=== PATIENT | female | born 1950 | race Caucasian/White ===

== ENCOUNTER → 2025-05-27 08:56 | Outpatient (REF) | payer MEDICARE, OTHER, SELFPAY ==
[2025-05-27 09:44] LABS: Hematocrit 40.7 % (37.0-47.0); Hemoglobin 14.0 g/dL (12.0-16.0); Mean Corp Hgb Conc. 34.4 g/dL (33.0-37.0); Mean Corpuscular Volume 86.2 fL (81.0-99.0); Nucleated Red Blood Cells % 0 %; Platelet Count 310 10^3/uL (130-400); Red Cell Dist. Width 13.0 % (11.5-14.5)
[2025-05-27 10:03] LABS: INR 1.27; PT 16.2 Sec (11.4-14.6)
[2025-05-27 10:26] LABS: ALT (SGPT) 19 U/L (0-35); AST (SGOT) 22 U/L (14-36); Albumin 4.1 g/dl (3.5-5.0); Alkaline Phosphatase 127 U/L (38-126); Blood Urea Nitrogen 19 mg/dl (7-17); Calcium 9.4 mg/dl (8.4-10.2); Carbon Dioxide 28 mmol/L (22-30); Chloride 104 mmol/L (98-107); Glucose 129 mg/dl (70-99); Magnesium 2.2 mg/dl (1.6-2.3); Potassium 4.0 mmol/L (3.5-5.1); Sodium 139 mmol/L (135-145); Total Protein 6.7 g/dl (6.3-8.2); eGFR > 60.00
== END ==
LOC: SDSPAT 08:56
PROVIDERS: ATTENDING PHYSICIAN Internal Medicine Cardiovascular Disease; FAMILY PHYSICIAN Family Medicine; OTHER PHYSICIAN Internal Medicine Interventional Cardiology
DX: I48.19 Other persistent atrial fibrillation (principal)
CPT/HCPCS: 36415; 75572; 80053; 83735; 85025; 85610; 86850; 86900; 86901; 93005; Q9967

== ENCOUNTER 2025-06-05 06:04 | Day surgery (SDC) | payer MEDICARE, OTHER, SELFPAY ==
[2025-05-27 09:23] VITALS: BMI 22.4
--- NOTE | 2025-05-28 11:44 | W.PN.UPDATE ---
Update Note
Progress Note Update
Chest CT 05/27/2025:
No left atrial appendage filling defect.
Incidental 9 mm low-attenuation thyroid nodule in the right lobe. --PCP and patient made aware
[2025-06-05] VITALS (12 sets, daily range): BP systolic 105–136; BP diastolic 57–76
--- NOTE | 2025-06-05 07:53 | ITS.CL.ABL ---
Supervisor Taping - Ablation
Ablation
Procedure Report:
ELECTROPHYSIOLOGIC STUDY AND POSSIBLE ABLATION
DATE: June 05, 2025
Primary Care Provider: Dr Mara Darling
Primary Managing Attorney: Dr Ignacio Segura
INDICATION:
Symptomatic Atrial Fibrillation.
Persistent
HISTORY: See H and P.
Symptomatic AF, poorly controlled with attempted medical therapy.
Symptomatic persistent atrial fibrillation with duration less than 1 year.
HAS-BLED: 2
Age
Abnormal Liver Function
CHADSVASc: 4
HTN
Age
F Gender
PRESENTING RHYTHM: AF
HISTORY: See H and P.
Symptomatic AF, poorly controlled with attempted medical therapy.
ANTICOAGULATION: Eliquis 5 mg twice daily
'TIME-OUT': called and confirmed.
SEDATION/ANESTHESIA: provided via the anesthesia department using general anesthesia.
PROCEDURE:
Ultrasound Guidance with real-time visualization of needle insertion and vessel patency performed by ca for femoral venous Vascular Access.
Under real-time US guidance, the needle was advanced with negative pressure into the vein. The needle was seen entering the vessel lumen with a good return of dark red flow, the syringe was removed, non-pulsatile, dark red blood low was noted and
the wire was passed without difficulty, then the needle was removed. US confirmed the wire was in the vein, not going into an artery,
Images were taken and saved for the patient's permanent record. Imaging findings typical femoral venous anatomy. Direct visualization of needle puncture into the femoral vein was observed and recorded.
A decapolar CS catheter was placed within the CS for mapping and pacing.
The intracardiac ultrasound catheter was positioned in the RA for continuous intracardiac ultrasound imaging.
Heparin bolus and infusion to target ACT at 300 -350 seconds was administered. Transseptal puncture was performed. This entailed advancing a sheath with dilator into the superior vena cava and withdrawing both (monitoring intracardiac ultrasound,
fluoroscopy and tip pressure) with the tip oriented toward the atrial septum. The fossa ovalis was engaged (indicated by sudden displacement of the sheath tip as well as tenting of the fossa seen on intracardiac ultrasound).
Transseptal puncture was performed. Left atrial catheter position was confirmed by echocardiographic imaging, pressure monitoring (LA mean pressure 18 mm Hg) and fluoroscopy. The sheath was advanced over the dilator and positioned in the left
atrium.
The [employer] multipolar mapping/ablation Sphere-9 catheter was positioned through the transseptal sheath for high density mapping.
Geometry and voltage mapping was performed using the kajeet mapping system for three-dimensional electroanatomical mapping.
Catheter positioning was guided and confirmed using both I.C.E. and fluoroscopy.
Cardioversion resulted in sinus rhythm.
Ablation strategy included PVI as well as mapping for extra PV contributors to atrial fibrillation which would also be targeted if present.
High density electroanatomical three-dimensional mapping demonstrated LSPV, LIPV, RSPV, RIPV.
After accomplishing pulmonary venous isolation, mapping identified additional areas likely to be extra PV contributors to atrial fibrillation. These areas demonstrated patchy low voltage as well as complex fractionated electrograms. These areas can
be sites for the formation of rotors which can drive and maintain atrial fibrillation. These areas are known to be significant contributors to initiation and perpetuation of atrial fibrillation.
Additional energy applications/additional ablation sets targeted extra PV contributors to atrial fibrillation.
Targets for additional PFA ablation included:
LA posterior wall targeted with pulsed electric field energy isolating the posterior wall of the left atrium
After ablation of the posterior wall, additional targets remained:
Anterior LA roof line
The ridge of tissue between the left atrial appendage and the left sided pulmonary veins (Ligament of Lucius )
These areas were ablated using pulsed electric field energy eliminating the extra PV contributors to atrial fibrillation.
Post ablation mapping finds entrance and exit block at each of the pulmonary veins, the LA posterior wall and at the additional lines at the anterior roof of the LA and the Ligament of Marshal rendering the sites no longer able to contribute to
atrial fibrillation.
I.C.E. :
Pre-Ablation Post-Ablation
LVEF: 55 % 55 %
WMA: none none
Pericardial effusion: none none
COMPLICATIONS:
None
SUMMARY:
- Mapping and ablation to isolate the PVs resulting in electrical isolation of the pulmonary veins
- Additional AF ablation sets X 3 after PVI (LA posterior wall, anterior roof line, ligament of Lucius) resulting in elimination of the targeted extra PV contributors to atrial fibrillation
- 3-D Electroanatomical Mapping
- Intracardiac Ultrasound
- Ultrasound guidance for vascular access
Post ablation, I discussed today's findings and results with the patient's daugther.
RECOMMENDATIONS:
- Observe in monitored bed.
- Maintain oral anticoagulation.
- Continue Eliquis 5 mg twice daily
- Continue cardiovascular care with Dr. Ignacio Segura
Copy to:
Dr Mara Darling
Dr Ignacio Segura
[2025-06-05 08:31] LABS: ACT-LR - POC 363 Seconds (116-155)
[2025-06-05 09:05] LABS: ACT-LR - POC 351 Seconds (116-155)
[2025-06-05 09:24] LABS: ACT-LR - POC 355 Seconds (116-155)
[2025-06-05 10:07] LABS: ACT-LR - POC > 397 Seconds (116-155)
--- NOTE | 2025-06-05 14:07 | W.PN.UPDATE ---
Update Note
Progress Note Update
74 yo WF s/p PVI (same day). She denies cp, sob, rosi diet, voiding, EKG SR 1 deg AVB, R fem site c/d/i, soft, no HT, mildly tender to palpation. She will resume Eliquis tonight. Activity restrictions reviewed. She will f/u Dr. Segura in 2 mo. She is
for d/c home after 230p if groin stable.
== END 2025-06-05 14:42 | disposition home or self-care (01) ==
LOC: CATH 06:04
PROVIDERS: ATTENDING PHYSICIAN Internal Medicine Cardiovascular Disease; FAMILY PHYSICIAN Family Medicine; REFERRING PHYSICIAN Internal Medicine Interventional Cardiology
DX: I48.19 Other persistent atrial fibrillation (principal); I10 Essential (primary) hypertension; E78.5 Hyperlipidemia, unspecified; I34.0 Nonrheumatic mitral (valve) insufficiency; I49.8 Other specified cardiac arrhythmias; Z79.01 Long term (current) use of anticoagulants; Z79.899 Other long term (current) drug therapy; Z90.3 Acquired absence of stomach [part of]; D50.9 Iron deficiency anemia, unspecified; K21.9 Gastro-esophageal reflux disease without esophagitis; G47.00 Insomnia, unspecified; Z98.51 Tubal ligation status
CPT/HCPCS: C1733; C1766; C1730; C1892; C1759; 85347; 86900; 86901; 93005; 93656; 93657; C1894